=== PATIENT | male | born 1945 | race Two or more races ===

== ENCOUNTER 2018-05-08 05:47 | Emergency (ER) | payer OTHER ==
[~2018-05-08] VITALS: Ht 177.8 cm; Wt 74.8 kg
[~2018-05-08 05:47] MED LIST: CEFADROXIL500 MG PO
[2018-05-08] MEDS ORDERED: ENALAPRIL MALEA20 MG (06:38)
[2018-05-08] MEDS ORDERED: ZOCOR20 MG (06:38)
== END 2018-05-08 13:04 | disposition home or self-care (01) ==
LOC: ER 05:47
DX: K92.1 Melena (principal); K29.01 Acute gastritis with bleeding

== ENCOUNTER 2019-02-16 00:19 | Emergency (ER) | payer OTHER ==
[~2019-02-16] VITALS: Ht 175.3 cm; Wt 77.1 kg
[~2019-02-16 00:19] MED LIST changes: +ENALAPRIL MALEA20 MG; +ZOCOR20 MG
[2019-02-16] MEDS ORDERED: NORFLEX100MG (00:53)
[2019-02-16] MEDS ORDERED: MOTRIN (00:54)
[2019-02-16] MEDS ORDERED: NAPROXEN500 MG PO (04:31)
[2019-02-16] MEDS ORDERED: valium PO (04:31)
[2019-02-16] MEDS ORDERED: MEDROLPACK PO (04:31)
== END 2019-02-16 04:55 | disposition home or self-care (01) ==
LOC: ER 00:19
DX: M43.6 Torticollis (principal); M13.88 Other specified arthritis, other site

== ENCOUNTER 2019-02-27 07:55 | Outpatient (CLI) | payer OTHER ==
[~2019-02-27 07:55] MED LIST changes: +MEDROLPACK PO; +MOTRIN; +NAPROXEN500 MG PO; +NORFLEX100MG; +valium PO
== END 2019-02-27 08:11 | disposition home or self-care (01) ==
LOC: MRI 07:55
DX: M46.20 Osteomyelitis of vertebra, site unspecified (principal)
CPT/HCPCS: 72141